=== PATIENT | female | born 1955 | race Caucasian/White ===

== ENCOUNTER 2021-05-23 08:23 | Outpatient (CLI) | payer OTHER, SELFPAY ==
--- NOTE | 2021-06-11 12:16 | WPDHOMESLEEP ---
Sleep Study - Home Unattended Date of Study: 05/23/21 <Ermelinda Ontiveros DO - Last Filed: 06/11/21 12:47> Ordering Provider: Lisa Awan MD <Ermelinda Ontiveros DO - Last Filed: 06/11/21 12:47> Interpreting Provider: Ermelinda Ontiveros DO <Ermelinda Ontiveros - Last Filed: 06/11/21 12:47> Home Sleep Study Type: Watch PAT <Ermelinda Ontiveros - Last Filed: 06/11/21 12:47> Height: 1.65 m <Ermelinda Ontiveros - Last Filed: 06/11/21 12:47> Weight: 126.099 kg <Ermelinda Ontiveros DO - Last Filed: 06/11/21 12:47> Body Mass Index: 46.2 <Ermelinda Ontiveros - Last Filed: 06/11/21 12:47> Neck Circumference (inches): 18 <Ermelinda Ontiveros - Last Filed: 06/11/21 12:47> [place]: 3 <Ermelinda Ontiveros - Last Filed: 06/11/21 12:47> Reason for Sleep Study Unrefreshing sleep, Nocturia, daytime hypersomnia <Ermelinda Ontiveros - Last Filed: 06/11/21 12:47> Sleep History The patient is a 65-year-old female with hypertension, GERD and recently diagnosed seronegative rheumatoid arthritis with possible lung involvement. The patient is currently retired. She rarely awakens from sleep short of breath. She frequently awakens at night with heartburn, belching or cough. She constantly snores and is frequently loud enough that others complain. She occasionally has trouble sleeping when she has a cold. She denies waking up gasping for air throughout the night. She occasionally has breathing problems at night observed by others. She frequently sweats excessively at night. She frequently has heart palpitations or notices irregular heartbeats during the night. She denies falling asleep during the day and while driving. She denies sleep paralysis and cataplexy. She rarely experiences vivid dreamlike scenes upon awakening or falling asleep. She rarely has nightmares. She frequently has thoughts racing through her mind. She denies feeling sad or depressed. She rarely feels anxious. She rarely notices parts of her body jerk. She denies kicking throughout the night. She occasionally experiences crawling and aching feelings in her legs as well as leg pain during the night. She denies grinding her teeth during sleep and awakening with jaw pain in the morning. She is occasionally bothered by pain during the day and awakened by pain during the night. She occasionally wakes up feeling stiff in the morning with sore and achy muscles. The patient goes to bed between 11 and midnight on both weekdays and weekends. It takes her about 10 minutes to fall asleep. She will wake up 3-4 times per night. When she awakens , she will use the restroom. Occasionally it will take her 45 minutes to get back to sleep. She wakes up around 5:00 a.m. on both weekdays and weekends. She typically gets 8-9 hours of sleep per night. She will stay in bed and watch television for 30-60 minutes after awakening. She currently lives with her . She does not consume any caffeinated beverages within 2 hours of bedtime. She does not engage in physical exercise before bedtime. She will watch television before falling asleep. She does not take naps in the afternoon or the evening. The patient quit smoking 45 years ago. The patient drinks 1 caffeinated beverage per day. She drinks 4 alcoholic beverages per day. She denies recreational drug use. <Ermelinda Ontiveros DO - Last Filed: 06/11/21 12:47> [facility] Past Medical History Medical History: Medical History Arthritis Gastroesophageal reflux disease History of endometrial cancer Stage I, hysterectimy Hyperlipidemia Hypertension <Ermelinda Ontiveros DO - Last Filed: 06/11/21 12:47> Surgical History Surgical History: Surgical History H/O foot surgery History of hysterectomy for endometrial can
[2021-06-11 12:26] VITALS: BMI 46.2
== END 2021-05-24 14:00 | disposition home or self-care (01) ==
LOC: ANHCSM 05-27 08:23
PROVIDERS: PCP Internal Medicine; Visit Provider Internal Medicine Critical Care Medicine
DX: Z72.820 Sleep deprivation (principal); G47.33 Obstructive sleep apnea (adult) (pediatric); G47.31 Primary central sleep apnea
CPT/HCPCS: 95800

== ENCOUNTER 2021-07-05 13:59 | Emergency (ER) | payer OTHER, SELFPAY ==
[2021-07-05 14:55] VITALS: BP 187/94; PULSE 107; RESP 16; TEMP 36.1; O2SAT 97
--- NOTE | 2021-07-05 19:19 | PC.NURSE ---
Pt. up to cash surrender calculator stating she will follow up w/ pcp. pt. advised to seek medical tx if there is any change in pt. condition or concerns. pt. VSS 97% o2, hr 101, bp 167/94
== END 2021-07-06 05:24 | disposition left against medical advice (07) ==
PROVIDERS: PCP Internal Medicine
DX: R11.2 Nausea with vomiting, unspecified (principal)
CPT/HCPCS: 99199

== ENCOUNTER 2021-07-24 07:42 | Outpatient (CLI) | payer OTHER, SELFPAY ==
--- NOTE | 2021-08-05 19:49 | WPDSLEEPSTUD ---
Sleep Study Date of Study: 07/24/21 <Ermelinda Ontiveros DO - Last Filed: 08/06/21 14:06> Ordering Provider: Lisa Awan MD <Ermelinda Ontiveros - Last Filed: 08/06/21 14:06> Interpreting Physician: Ermelinda Ontiveros DO <Ermelinda Ontiveros - Last Filed: 08/06/21 14:06> Sleep Study Type: CPAP Titration <Ermelinda Ontiveros DO - Last Filed: 08/06/21 14:06> Height: 1.75 m <Ermelinda Ontiveros DO - Last Filed: 08/06/21 14:06> Weight: 127.006 kg <Ermelinda Onitveros DO - Last Filed: 08/06/21 14:06> Body Mass Index: 41.3 <Ermelinda Ontiveros DO - Last Filed: 08/06/21 14:06> Neck Circumference (inches): 15.5 <Ermelinda Ontiveros DO - Last Filed: 08/06/21 14:06> [place]: 3 <Ermelinda Ontiveros DO - Last Filed: 08/06/21 14:06> Reason for Sleep Study The patient had an HSAT on 05/23/2021 that showed an AHI of 53.1 and a central apnea index of 8.3. <Ermelinda Ontiveros DO - Last Filed: 08/06/21 14:06> Sleep History The patient is a 65-year-old female with hypertension, GERD and recently diagnosed seronegative rheumatoid arthritis with possible lung involvement. The patient is currently retired. She rarely awakens from sleep short of breath. She frequently awakens at night with heartburn, belching or cough. She constantly snores and is frequently loud enough that others complain. She occasionally has trouble sleeping when she has a cold. She denies waking up gasping for air throughout the night. She occasionally has breathing problems at night observed by others. She frequently sweats excessively at night. She frequently has heart palpitations or notices irregular heartbeats during the night. She denies falling asleep during the day and while driving. She denies sleep paralysis and cataplexy. She rarely experiences vivid dreamlike scenes upon awakening or falling asleep. She rarely has nightmares. She frequently has thoughts racing through her mind. She denies feeling sad or depressed. She rarely feels anxious. She rarely notices parts of her body jerk. She denies kicking throughout the night. She occasionally experiences crawling and aching feelings in her legs as well as leg pain during the night. She denies grinding her teeth during sleep and awakening with jaw pain in the morning. She is occasionally bothered by pain during the day and awakened by pain during the night. She occasionally wakes up feeling stiff in the morning with sore and achy muscles. The patient goes to bed between 11 and midnight on both weekdays and weekends. It takes her about 10 minutes to fall asleep. She will wake up 3-4 times per night. When she awakens , she will use the restroom. Occasionally it will take her 45 minutes to get back to sleep. She wakes up around 5:00 a.m. on both weekdays and weekends. She typically gets 8-9 hours of sleep per night. She will stay in bed and watch television for 30-60 minutes after awakening. She currently lives with her . She does not consume any caffeinated beverages within 2 hours of bedtime. She does not engage in physical exercise before bedtime. She will watch television before falling asleep. She does not take naps in the afternoon or the evening. The patient quit smoking 45 years ago. The patient drinks 1 caffeinated beverage per day. She drinks 4 alcoholic beverages per day. She denies recreational drug use. <Ermelinda Ontiveros DO - Last Filed: 08/06/21 14:06> [facility] Past Medical History Medical History: Medical History Arthritis Gastroesophageal reflux disease History of endometrial cancer Stage I, hysterectimy Hyperlipidemia Hypertension <Ermelinda Ontiveros DO - Last Filed: 08/06/21 14:06> Surgical History Surgical History: Surgical History H/O foot surgery History of hys
[2021-08-06 13:57] VITALS: BMI 41.3
== END 2021-07-25 06:55 | disposition home or self-care (01) ==
LOC: ANHCSM 07:44
PROVIDERS: PCP Internal Medicine; Visit Provider Internal Medicine Critical Care Medicine
DX: G47.33 Obstructive sleep apnea (adult) (pediatric) (principal); G47.31 Primary central sleep apnea
CPT/HCPCS: 95811

== ENCOUNTER 2021-07-25 14:30 | Outpatient (CLI) | payer OTHER, SELFPAY ==
--- NOTE | 2021-07-25 14:51 | ECHO_ITS ---
Patient Info Name: Sal Goins Age: 65 years : 1955 Gender: Female Ht: 96 in Wt: 280 lbs BSA: 2.90 m2 HR: 96 bpm BP: 168 / 95 mmHg Technical Quality: Fair Exam Date: 07/25/2021 3:26 PM Exam Location: [facility] Pulmonary Patient Status: Outpatient Admit Date: 07/25/2021 Staff Ordering Physician: Wagnre Curiel APRN [employer] Medic: Blanca Perez RDCS Attending Provider: Wagner Curiel APRN Referring Physician: Moisés OTT; Exam Type: CA echo dop color flow w con Study Info Indications - primary central sleep apnea Complete two-dimensional, color flow and Doppler transthoracic echocardiogram is performed with contrast to opacify the left ventricle and to improve the deliniation of the left ventricle endocardial borders. Contrast/Agitated Saline Contrast/Ag. Saline: Definity Amount: 1.00 ml New IV Access: Inner Forearm and Left Site Condition: IV removed Summary 1. Left ventricular chamber dimension is normal. 2. Definity contrast administered improved wall motion interpretation. 3. Left ventricular systolic function is normal, estimated at 65-70%. 4. The left ventricular diastolic function is grade I diastolic dysfunction. 5. There is trace tricuspid valve regurgitation. 6. Mild pulmonary hypertension, estimated pulmonary arterial systolic pressure is 40 mmHg. Left Ventricle Definity contrast administered improved wall motion interpretation. Tissue doppler is not performed. Left ventricular chamber dimension is normal. Left ventricular systolic function is normal, estimated at 65-70%. The left ventricular diastolic function is grade I diastolic dysfunction. Right Ventricle Right ventricular chamber dimension is normal. Right ventricular systolic function is normal. Left Atria Left atrial chamber dimension is normal. Right Atria Right atrial chamber dimension is normal. Aortic Valve The aortic valve is trileaflet. There is no aortic valve stenosis. There is no aortic valve regurgitation. Pulmonic Valve There is no pulmonic regurgitation. Mitral Valve There is no mitral valve stenosis. There is no mitral valve regurgitation. Tricuspid Valve There is trace tricuspid valve regurgitation. Mild pulmonary hypertension, estimated pulmonary arterial systolic pressure is 40 mmHg. Pericardium/Pleural There is no pericardial effusion. Inferior Vena Cava Normal inferior vena cava with >50% collapse upon inspiration consistent with normal right atrial pressure, 5 mmHg. Aorta The aortic root size at the sinus of Valsalva is normal. Left Ventricular Outflow Tract Name Value Normal LVOT 2D LVOT Diameter 2.03 cm LVOT Doppler LVOT Peak Gradient 6 mmHg LVOT Mean Gradient 4 mmHg LVOT VTI 23.35 cm LVOT VTI/AV VTI Ratio 0.73 LVOT Stroke Volume 75.65 ml LVOT CO 18.64 l/min LVOT CI 6.42 L/min/m2 Pulmonic Valve
[2021-07-25] MEDS: PERFLUTREN LIPID MICROSPHERES 1.5 ML VIAL DILUTED TO 10 ML TOTAL VOLUME IV PUSH (15:48)
== END 2021-07-25 14:31 | disposition home or self-care (01) ==
PROVIDERS: PCP Internal Medicine; Visit Provider Nurse Practitioner Family
DX: G47.31 Primary central sleep apnea (principal); I27.20 Pulmonary hypertension, unspecified
CPT/HCPCS: C8929

== ENCOUNTER 2022-05-05 14:59 | Outpatient (CLI) | payer MEDICARE, SELFPAY ==
--- NOTE | ~2022-05-05 | XR_ITS ---
EXAMINATION: XR knee LT min 4V DATE: 05/05/2022 15:52 INDICATION: Chronic left knee pain. Arthritis. TECHNIQUE: 4 views of left knee were obtained. COMPARISON: None. FINDINGS: There is varus attenuation at the knee. No fracture. There is severe osteoarthritis of medi al compartment and mild osteoarthritis of lateral and patellofemoral compartments. No knee joint effu luda. IMPRESSION: 1. Severe left knee osteoarthritis. Reviewed, dictated and finalized at location B.
--- NOTE | ~2022-05-05 | XR_ITS ---
EXAMINATION: XR knee RT min 4V DATE: 05/05/2022 15:53 INDICATION: Right knee pain. TECHNIQUE: 4 views of right knee were obtained. COMPARISON: None. FINDINGS: Bone alignment is normal. No fracture. There is moderate osteoarthritis of medial compartme nt and mild osteoarthritis of lateral and patellofemoral compartments. No knee joint effusion. IMPRESSION: 1. Moderate right knee osteoarthritis. Reviewed, dictated and finalized at location B.
== END 2022-05-05 15:00 | disposition home or self-care (01) ==
PROVIDERS: PCP Internal Medicine; Visit Provider Internal Medicine
DX: M25.561 Pain in right knee (principal); M25.562 Pain in left knee; G89.29 Other chronic pain; M17.0 Bilateral primary osteoarthritis of knee
CPT/HCPCS: 73564

== ENCOUNTER 2022-09-23 13:36 | Outpatient (CLI) | payer MEDICARE, SELFPAY ==
--- NOTE | ~2022-09-23 | CT_ITS ---
EXAMINATION:CT chest high resolution wo ks DATE: 09/23/2022 13:56 INDICATION: Interstitial lung disease. TECHNIQUE: Computed tomography (CT) of the chest was performed without intravenous contrast. Automate d exposure control and iterative reconstruction technique were employed. The dose-length product (DLP ) was 969.92 mGy-cm. COMPARISON: Chest 2 views 03/10/2019 FINDINGS: There is mild atelectasis bilaterally. There are subpleural bands in the lower lobes. No br onchiectasis or honeycombing. A calcified right lung nodule and calcified right hilar and mediastinal lymph nodes are consistent with old granulomatous disease. The heart size is normal. There are coron nelson artery calcifications. No pericardial effusion. There are radiopaque foreign bodies in the stomac h that may be endoscopy clips. There is mild thoracic spondylosis. IMPRESSION: 1. Mild lung disease involving the lower lobes that may be chronic. Reviewed, dictated and finalized at location A. ER METAL
== END 2022-09-23 13:37 | disposition home or self-care (01) ==
PROVIDERS: PCP Internal Medicine
DX: J84.9 Interstitial pulmonary disease, unspecified (principal); D84.9 Immunodeficiency, unspecified; M06.09 Rheumatoid arthritis without rheumatoid factor, multiple sites
CPT/HCPCS: 71250

== ENCOUNTER → 2022-10-02 08:10 | Outpatient (CLI) | payer MEDICARE, SELFPAY ==
--- NOTE | 2022-10-27 10:26 | WPDSLEEPSTUD ---
Sleep Study Date of Study: 10/02/22 Ordering Provider: Lisa Awan MD Interpreting Physician: Ermelinda Ontiveros DO Sleep Study Type: BiPAP Titration Height: 1.63 m Weight: 128.367 kg Body Mass Index: 48.5 Neck Circumference (inches): 18 [place]: 3 Reason for Sleep Study HSAT on 05/23/2021 showed AHI of 53.1 and ROSALINE of 8.3. She had a PAP Titration done on 07/24/2021 where CPAP 19 cm H2O with an EPR of 2 was her optimal pressure. Sleep History The patient is a 67-year-old female with hypertension, GERD and recently diagnosed seronegative rheumatoid arthritis with possible lung involvement.? The patient is currently retired.? She rarely awakens from sleep short of breath.? She frequently awakens at night with heartburn, belching or cough.? She constantly snores and is frequently loud enough that others complain.? She occasionally has trouble sleeping when she has a cold.? She denies waking up gasping for air throughout the night.? She occasionally has breathing problems at night observed by others.? She frequently sweats excessively at night.? She frequently has heart palpitations or notices irregular heartbeats during the night.? She denies falling asleep during the day and while driving.? She denies sleep paralysis and cataplexy.? She rarely experiences vivid dreamlike scenes upon awakening or falling asleep.? She rarely has nightmares.? She frequently has thoughts racing through her mind.? She denies feeling sad or depressed.? She rarely feels anxious.? She rarely notices parts of her body jerk.? She denies kicking throughout the night.??She occasionally experiences crawling and aching feelings in her legs as well as leg pain during the night.? She denies grinding her teeth during sleep and awakening with jaw pain in the morning.? She is occasionally bothered by pain during the day and awakened by pain during the night.? She occasionally wakes up feeling stiff in the morning with sore and achy muscles. The patient goes to bed between 11 and midnight on both weekdays and weekends.? It takes her about 10 minutes to fall asleep.? She will wake up 3-4 times per night.? When she awakens , she will use the restroom.? Occasionally it will take her 45 minutes to get back to sleep.? She wakes up around 5:00 a.m. on both weekdays and weekends.? She typically gets 8-9 hours of sleep per night.? She will stay in bed and watch television for 30-60 minutes after awakening.? She currently lives with her .? She does not consume any caffeinated beverages within 2 hours of bedtime.? She does not engage in physical exercise before bedtime.? She will watch television before falling asleep.? She does not take naps in the afternoon or the evening.? The patient quit smoking 45 years ago.? The patient drinks 1 caffeinated beverage per day.? She drinks 4 alcoholic beverages per day. She denies recreational drug use. [facility] Past Medical History Medical History Arthritis Gastroesophageal reflux disease History of endometrial cancer Stage I, hysterectimy Hyperlipidemia Hypertension Surgical History Surgical History H/O foot surgery History of hysterectomy for endometrial cancer Family History Family History Mother Heart disease Grandparent Hypertension Grandparent Brain tumor Social History Social History Smoking packs per day: 1 Smoking cigarettes per day: 20.0 Years smoked: 10 Smoking pack-years: 10.00 Smoking status: Former smoker (1981) Smoking end date: 07/20/81 Medications Home Medications Medication Instructions Recorded Confirmed Type albuterol sulfate 90 mcg/actuation 2 puff inhalation Q4H PRN 04/04/21 06/11/22 History aerosol inhaler amlodipine 10 mg tablet 10 mg PO DAILY 04/04/21
[2022-10-27 10:29] VITALS: BMI 48.5
== END ==
PROVIDERS: PCP Internal Medicine; Visit Provider Internal Medicine Critical Care Medicine
DX: G47.33 Obstructive sleep apnea (adult) (pediatric) (principal); G47.31 Primary central sleep apnea; R25.8 Other abnormal involuntary movements; Z78.9 Other specified health status; K21.9 Gastro-esophageal reflux disease without esophagitis; I10 Essential (primary) hypertension; E78.5 Hyperlipidemia, unspecified; Z85.42 Personal history of malignant neoplasm of other parts of uterus; Z87.891 Personal history of nicotine dependence
CPT/HCPCS: 95811

== ENCOUNTER 2022-10-24 12:42 | Outpatient (CLI) | payer MEDICARE, SELFPAY ==
--- NOTE | ~2022-10-24 | DEXA_ITS ---
Bone Density Report Name: NADINE PASCAL Age: 67 Sex: Female Ethnicity: White Date of : 1955 Indication: postmenopausal; screening for osteoporosis; height loss; cancer; hysterectomy; rheumatoid arthritis; Referring Provider: FRED, VENUS Rios Study: Bone densitometry was performed. Exam Date: October 24, 2022 Accession number: [id number] Bone Density: Region BMD T-score Z-score Classification AP Spine(L1-L4) 1.302 2.3 4.2 Normal Femoral Neck (Left) 0.842 -0.1 1.5 Normal Total Hip (Left) 1.250 2.5 3.8 Normal Femoral Neck (Right) 0.805 -0.4 1.2 Normal Total Hip (Right) 1.173 1.9 3.2 Normal Total Hip Mean 1.212 2.2 3.5 Normal World Health Organization criteria for BMD impression classify patients as: Normal (T-score at or above -1.0), Osteopenia (T-score between -1.0 and -2.5), or Osteoporosis (T-score at or below -2.5). 10-year Fracture Risk: FRAX not reported because: All T-scores for Spine Total, Hip Total, Femoral Neck at or above -1.0 Clinical Information Provided by Patient: Has rheumatoid arthritis Has 3 or more alcoholic drinks per day Has the following medical conditions: Cancer, Hysterectomy Patient maximum height was 65 Menopause Age: 57 No regular weight bearing exercise Onset of menses at age 16 Number of children 2 Impression: The patient has normal bone mass. The patient has risk factors, including: excessive alcohol use. Discussion: BONE DENSITY IS ABOVE THE MINIMUM DESIRABLE LEVEL AT ALL SKELETAL SITES TESTED. This patient?s bone mineral density is above the minimum desirable level (T-score -1.0 or better) at all sites measured. The patient should follow a healthful lifestyle (good nutrition with adequate calcium and vitamin D, and appropriate weight-bearing exercise). Follow-Up: Consider repeating this study in 5 years or sooner if there is some new clinical indication. Reported by: FELIBERTO on 10/24/2022 1:10:00 PM. Reviewed, dictated and finalized at location [facility]
== END 2022-10-24 12:43 | disposition home or self-care (01) ==
LOC: ANHIMG 12:47
PROVIDERS: PCP Internal Medicine; Visit Provider Internal Medicine
DX: Z78.0 Asymptomatic menopausal state (principal)
CPT/HCPCS: 77080

== ENCOUNTER 2023-07-21 12:36 | Emergency (ER) | payer MEDICARE, SELFPAY ==
--- NOTE | 2023-07-21 12:38 | ED.UPPEXIN ---
HPI - Extremity Injury (Upper) General Chief Complaint: Extremity Injury, Upper Stated Complaint: Right Arm Pain/Bruise Time Seen by Provider: 07/21/23 12:37 Source: patient Mode of arrival: ambulatory Limitations: no limitations History of Present Illness HPI narrative: Patient is a 67-year-old female who presents with right shoulder pain after adjusting herself in a chair in feeling a sharp pain 1 week ago. Patient states it has not hurt as bad as the 1st day since. Patient still states she is able to use the arm normally but does have certain movements that elicit pain. Patient also reports the front of shoulder is tender on palpation. Patient also has bruise to right bicep. Patient has history of left bicep tear. Patient denies falling on arm or being on blood thinners. Related Data Home Medications Medication Instructions Recorded Confirmed albuterol sulfate 90 mcg/actuation 2 puff inhalation Q4H PRN Wheezing 04/04/21 07/21/23 aerosol inhaler amlodipine 10 mg tablet 10 mg PO DAILY 04/04/21 07/21/23 atorvastatin 10 mg tablet 10 mg PO DAILY 04/04/21 07/21/23 losartan 100 mg tablet 100 mg PO DAILY 04/04/21 07/21/23 omeprazole 20 mg capsule,delayed 20 mg PO DAILY 04/04/21 07/21/23 release mycophenolate mofetil 250 mg 500 mg PO Q12H 06/11/22 07/21/23 capsule (CellCept) diclofenac sodium 75 mg 75 mg PO BID 02/19/23 07/21/23 tablet,delayed release gabapentin 100 mg capsule 100 mg PO QID 02/19/23 07/21/23 hydroxychloroquine 100 mg tablet 200 mg PO BID 02/19/23 07/21/23 tirzepatide 7.5 mg/0.5 mL 7.5 mg subcut WEEKLY 07/21/23 07/21/23 subcutaneous pen injector (Sergio) Allergies Allergy/AdvReac Type Severity Reaction Status Date / Time azilsartan AdvReac Vomiting Verified 07/21/23 12:59 chlorthalidone AdvReac Vomiting Verified 07/21/23 12:56 Review of Systems Review of Systems: All systems reviewed & are unremarkable except as noted in HPI and below Constitutional: Constitutional: Denies body ache(s), Denies chills, Denies fatigue, Denies fever(s), Denies headache(s), Denies malaise and Denies weakness Eyes: Eyes: Denies blurry vision, Denies irritation and Denies loss of vision ENT: Denies otalgia, Denies headache(s), Denies nasal discharge, Denies sinus pain and Denies sore throat Cardiovascular: Cardiovascular: Denies chest pain, Denies irregular heart rhythm and Denies dyspnea Respiratory: Respiratory: Denies dyspnea Gastrointestinal: Gastrointestinal: Denies abdominal pain, Denies melena, Denies hematochezia, Denies diarrhea, Denies nausea and Denies vomiting Musculoskeletal: Musculoskeletal: Denies back pain, Denies myalgias and Reports arthralgias Integumentary/Breasts: Skin/Breast: Denies pruritus and Denies rash Neurologic: Denies headache(s), Denies loss of vision and Denies weakness Psychiatric: Psychiatric: Reports no additional psychiatric complaints Endocrine: Endocrine: Denies fatigue PMFSH Past Medical History Medical History Arthritis Gastroesophageal reflux disease History of endometrial cancer Stage I, hysterectimy Hyperlipidemia Hypertension Surgical History Surgical History H/O foot surgery History of hysterectomy for endometrial cancer Family History Family History Mother Heart disease Grandparent Hypertension Grandparent Brain tumor Social History Social History Smoking packs per day: 1 Smoking cigarettes per day: 20.0 Years smoked: 10 Smoking pack-years: 10.00 Smoking status: Former smoker (1981) Smoking end date: 07/20/81 Comments At time of signature, agree with nursing past medical, surgical, social and family history. There is no relevant family history pertinent to the presenting complaint. Exam Const:
[2023-07-21 12:52] VITALS: BP 154/69; PULSE 93; RESP 16; TEMP 36.9; O2SAT 98
== END 2023-07-21 13:35 | disposition home or self-care (01) ==
PROVIDERS: Emergency Provider Nurse Practitioner Family; PCP Internal Medicine
DX: S46.911A Strain of unspecified muscle, fascia and tendon at shoulder and upper arm level, right arm, initial encounter (principal); T14.90XA Injury, unspecified, initial encounter; E78.5 Hyperlipidemia, unspecified; I10 Essential (primary) hypertension; Z85.42 Personal history of malignant neoplasm of other parts of uterus; Z87.891 Personal history of nicotine dependence
CPT/HCPCS: 99213; G0463

== ENCOUNTER 2023-10-22 12:33 | Outpatient (CLI) | payer MEDICARE, SELFPAY ==
--- NOTE | ~2023-10-22 | US_ITS ---
EXAMINATION: US venous doppler [facility] DATE: 10/22/2023 13:05 INDICATION: Left lower limb focal swelling. TECHNIQUE: Grayscale ultrasound images without and with compression and Doppler ultrasound images of the left lower extremity veins were obtained. COMPARISON: None. FINDINGS: The visualized portions of left common femoral vein, profunda (deep) femoral vein, femoral vein, popl iteal vein, peroneal veins, posterior tibial veins, and greater saphenous vein outflow are patent. Th ere is a 4.3 x 1.5 cm mass of mixed echogenicity in the medial popliteal region. IMPRESSION: 1. No deep venous thrombosis. 2. 4.3 x 1.5 cm mass of mixed echogenicity in the medial popliteal region, likely a hematoma and/or B camila's cyst. Reviewed, dictated and finalized at location A. IMPRESSION: 1. No deep venous thrombosis. 2. 4.3 x 1.5 cm mass of mixed echogenicity in the medial popliteal region, like ly a hematoma and/or Christensen's cyst.
== END 2023-10-22 12:34 | disposition home or self-care (01) ==
PROVIDERS: PCP Internal Medicine; Visit Provider Orthopaedic Surgery
DX: M79.605 Pain in left leg (principal); Z47.1 Aftercare following joint replacement surgery; Z96.652 Presence of left artificial knee joint
CPT/HCPCS: 93971

== ENCOUNTER 2024-06-24 12:53 | Emergency (ER) | payer MEDICARE, SELFPAY ==
--- NOTE | ~2024-06-24 | XR_ITS ---
Clinical Indication: Cough PA and lateral views of the chest: Comparison: 03/10/2019 Findings: The lungs are clear, without evidence of focal consolidation or pleural effusion. Cardiome diastinal silhouette is within normal limits. Bones and soft tissues are unremarkable. Impression: Normal chest. Reviewed, dictated and finalized at [facility]. NAGE DESIGN COORDINATOR Impression: Normal chest.
[2024-06-24 13:04] VITALS: BP 183/80; PULSE 107; RESP 19; TEMP 37.1; O2SAT 96
[2024-06-24 13:30] VITALS: BP 207/72; PULSE 107; RESP 19; O2SAT 96
--- NOTE | 2024-06-24 13:32 | ED_ITS ---
HPI - URI/Sore Throat General Chief Complaint: Upper Respiratory Infection Stated Complaint: SOB/Cough Time Seen by Provider: 06/24/24 13:46 Source: patient, RN notes reviewed and old records reviewed Mode of arrival: ambulatory Limitations: no limitations History of Present Illness HPI Narrative: Patient presents with complaints of cough and wheezing for the past week. She denies any fever. She does report that she has been taking Sudafed for her symptoms and using her albuterol inhaler. She denies any shortness of breath. She is not in any distress at this time, including respiratory distress. Related Data Home Medications Medication Instructions Recorded Confirmed albuterol sulfate 90 mcg/actuation 2 puff inhalation Q4H PRN Wheezing 04/04/21 06/24/24 aerosol inhaler amlodipine 10 mg tablet 10 mg PO DAILY 04/04/21 06/24/24 atorvastatin 10 mg tablet 10 mg PO DAILY 04/04/21 06/24/24 losartan 100 mg tablet 100 mg PO DAILY 04/04/21 06/24/24 omeprazole 20 mg capsule,delayed 20 mg PO DAILY 04/04/21 06/24/24 release mycophenolate mofetil 250 mg 500 mg PO Q12H 06/11/22 06/24/24 capsule (CellCept) diclofenac sodium 75 mg 75 mg PO BID 02/19/23 06/24/24 tablet,delayed release gabapentin 100 mg capsule 100 mg PO QID 02/19/23 06/24/24 hydroxychloroquine 100 mg tablet 200 mg PO BID 02/19/23 06/24/24 tirzepatide 7.5 mg/0.5 mL 7.5 mg subcut WEEKLY 07/21/23 06/24/24 subcutaneous pen injector (Mounjaro) Allergies Allergy/AdvReac Type Severity Reaction Status Date / Time azilsartan AdvReac Vomiting Verified 06/24/24 13:02 chlorthalidone AdvReac Vomiting Verified 06/24/24 13:02 Review of Systems Review of Systems: All systems reviewed & are unremarkable except as noted in HPI and below Constitutional: Constitutional: Reports no additional constitutional complaints ENT: Reports system reviewed and no additional complaints, except as documented Cardiovascular: Cardiovascular: Reports no additional cardiovascular complaints Respiratory: Respiratory: Reports no additional respiratory complaints, Reports cough and Reports wheezing Gastrointestinal: Gastrointestinal: Reports no additional gastrointestinal complaints PMFSH Past Medical History Medical History Arthritis Gastroesophageal reflux disease History of endometrial cancer Stage I, hysterectimy Hyperlipidemia Hypertension Surgical History Surgical History H/O foot surgery History of hysterectomy for endometrial cancer Family History Family History Mother Heart disease Grandparent Hypertension Grandparent Brain tumor Social History Social History Smoking packs per day: 1 Smoking cigarettes per day: 20.0 Years smoked: 10 Smoking pack-years: 10.00 Smoking status: Former smoker (1981) Smoking end date: 07/20/81 Comments At the time of my signature, I reviewed and agree with the nursing past medical, surgical, social, and family history. There is no relevant family history pertinent to the patient complaint. Exam Const: General: cooperative, no acute distress, alert and awake Orientation/consciousness: oriented to person, oriented to place and oriented to time HENMT: Head: normal to inspection Ears: TM's normal bilaterally Mouth: Yes moist mucous membranes Resp: Effort & Inspection: normal respiratory effort and able to speak in complete sentences Auscultation: clear to auscultation bilaterally, no crackles, no rales, no rhonchi and wheezes expiratory wheezes Cardio: Palpation: normal PMI Rate: regular rate Rhythm: regular rhythm Heart sounds: S1 normal heart sound present and S2 normal heart sound present Neuro: General: oriented to person, oriented to place and oriented to time Cranial nerves: Yes CN's II-XII intact bilaterally Psych: Appearance: grossly normal Thought process: Normal thought process p resent Insight: Good insight present (Psych) Judgement: Good judgement present (Psych) Course Course Level of Care: Express Care Visit Vital Signs Vital signs: Vital Signs Temperature 98.7 F 06/24/24 13:04 Pulse Rate 107 H 06/24/24 13:04 Respiratory Rate 19 06/24/24 13:04 Blood Pressure 183/80 H 06/24/24 13:04 Pulse Oximetry 96 06/24/24 13:04 Oxygen Delivery Room Air 12/06/24 13:04 Temperature 98.7 F 06/24/24 13:04 Pulse Rate 107 H 06/24/24 13:04 Respiratory Rate 19 06/24/24 13:04 Blood Pressure 183/80 H 06/24/24 13:04 Pulse Oximetry 96 06/24/24 13:04 Oxygen Delivery Room Air 06/24/24 13:04 Reviewed MDM - URI/Sore Throat MDM Narrative Medical decision making narrative: Elevated blood pressure noted. Patient has been taking Sudafed, she was counseled to cease this. Negative chest x-ray. Patient with multiple comorbid conditions. Start azithromycin for Ativan to inflammatory properties, start prednisone. Continue albuterol. Emergency department for any new or worse symp toms. Discharge instructions reviewed with patient, as well as provided in writing per nursing staff. The instructions also include specific and strict return/GO TO THE ER as well as f/u information. All questions have been answered, and the patient deny any further questions with discharge and discharge plan. Some parts of this dictation were generated by voice recognition software and may contain typographical and/or grammatical inaccuracies. Differential Diagnosis Differential diagnosis: Likely upper respiratory infection, otitis media, bronchitis and influenza Medical Records Attestation: I reviewed the patient's medical records. Imaging Data Attestation: I personally reviewed and interpreted this imaging study as follows: My impression: negative Radiologist's impression: No acute process Discharge Plan Discharge Clinical Impression: Bronchitis, Elevated blood pressure reading Patient Disposition: Home, Self-Care Condition: Stable Instructions: Antibiotic Form, Acute Bronchitis (ED) Additional Instructions: Take medications as prescribed. Follow with primary care provider. Emergency department for new or worse symptoms Prescriptions: New azithromycin 250 mg tablet See Rx Instructions .ROUTE .COMPLEX Qty: 6 0RF Rx Instructions: For 250 mg dose pack: take 500 mg today (day 1), then 250 mg for 4 days (days 2-5) prednisone 50 mg tablet 50 mg PO DAILY Qty: 5 0RF No Action Mounjaro 7.5 mg/0.5 mL pen injector 7.5 mg SUBCUT WEEKLY lidocaine 5 % adhesive patch,medicated 1 patch topical DAILY Qty: 15 0RF Rx Instructions: leave on most painful area for up to 12 hrs albuterol sulfate 90 mcg/actuation HFA aerosol inhaler 2 puff inhalation Q4H PRN (Reason: Wheezing) atorvastatin 10 mg tablet 10 mg PO DAILY amlodipine 10 mg tablet 10 mg PO DAILY losartan 100 mg tablet 100 mg PO DAILY omeprazole 20 mg capsule,delayed release(DR/EC) 20 mg PO DAILY mycophenolate mofetil [CellCept] 250 mg capsule 500 mg PO Q12H diclofenac sodium 75 mg tablet,delayed release (DR/EC) 75 mg PO BID gabapentin 100 mg capsule 100 mg PO QID hydroxychloroquine 100 mg tablet 200 mg PO BID ferrous sulfate 325 mg (65 mg iron) tablet 325 mg PO DAILY 30 Days Qty: 30 3RF Follow-up/Referrals: Torsten,Azam Rios MD [Primary Care Provider] - 1 Week Time of Disposition: 14:26
[2024-06-24 14:30] VITALS: BP 204/78
== END 2024-06-24 14:30 | disposition home or self-care (01) ==
PROVIDERS: Emergency Provider Nurse Practitioner Family; PCP Internal Medicine
DX: J40 Bronchitis, not specified as acute or chronic (principal); I10 Essential (primary) hypertension; E78.5 Hyperlipidemia, unspecified; K21.9 Gastro-esophageal reflux disease without esophagitis; M19.90 Unspecified osteoarthritis, unspecified site; Z85.42 Personal history of malignant neoplasm of other parts of uterus; Z87.891 Personal history of nicotine dependence
CPT/HCPCS: 71046; 99213; G0463

== ENCOUNTER 2025-01-10 12:25 | Emergency (ER) | payer MEDICARE, SELFPAY ==
[2025-01-10 12:32] VITALS: BP 164/85; PULSE 107; RESP 16; TEMP 37.2; O2SAT 100
[2025-01-10 13:03] VITALS: BP 159/77; PULSE 102; O2SAT 98
--- NOTE | 2025-01-10 13:03 | ED_ITS ---
HPI - URI/Sore Throat General Chief Complaint: Shortness of Breath/Dyspnea Stated Complaint: Low B/P, High Heart Rate/SOB Time Seen by Provider: 01/10/25 12:25 Source: patient Mode of arrival: ambulatory Limitations: no limitations History of Present Illness HPI Narrative: Patient is a 69-year-old female who presents with concern for heat exhaustion. Patient states she was in the pool on Thursday and did drink water and Gatorade then, but has not been continuing to drink fluids since she ran out. Patient states her blood pressure on Thursday was 74/53, 97/74, 103/61. She took her blood pressure medicine prior to arrival, but is hypertensive today. Did not check her heart rate over the weekend. Patient also reports nasal congestion, runny nose and mild cough for 3-4 days. This a she takes Flonase and Claritin every day. Also reports she had shortness of breath and a slight headache this morning but also resolved. Denies any fever, chills, chest pain, nausea, vomiting, diarrhea, persistent cough, or productive cough. Related Data Home Medications ?Medication ?Instructions ?Recorded ?Confirmed ?Last Taken ?Type albuterol sulfate 90 mcg/actuation 2 puff inhalation Q4H PRN Wheezing 04/04/21 08/25/24 Unknown History aerosol inhaler amlodipine 10 mg tablet 10 mg PO DAILY 04/04/21 08/25/24 Unknown History atorvastatin 10 mg tablet 10 mg PO DAILY 04/04/21 08/25/24 Unknown History losartan 100 mg tablet 100 mg PO DAILY 04/04/21 08/25/24 Unknown History omeprazole 20 mg capsule,delayed 20 mg PO DAILY 04/04/21 08/25/24 Unknown History release hydroxychloroquine 100 mg tablet 200 mg PO BID 02/19/23 08/25/24 Unknown History mycophenolate mofetil 500 mg tablet 3,000 mg PO DAILY 08/25/24 08/25/24 Unknown History tirzepatide 12.5 mg/0.5 mL 12.5 mg subcut WEEKLY 08/25/24 08/25/24 Unknown History subcutaneous pen injector (Sergio) Allergies Allergy/AdvReac Type Severity Reaction Status Date / Time azilsartan AdvReac Vomiting Verified 06/24/24 13:02 chlorthalidone AdvReac Vomiting Verified 06/24/24 13:02 Review of Systems Review of Systems: All systems reviewed & are unremarkable except as noted in HPI and below Constitutional: Constitutional: Denies chills, Denies fatigue, Denies fever(s), Reports headache(s), Denies malaise and Denies weakness Eyes: Eyes: Denies blurry vision, Denies itchy eyes and Denies loss of vision ENT: Denies otalgia, Reports headache(s), Reports nasal congestion, Reports nasal discharge, Denies sinus pain and Denies sore throat Cardiovascular: Cardiovascular: Denies chest pain, Denies irregular heart rhythm and Denies dyspnea Respiratory: Respiratory: Reports cough and Denies dyspnea Gastrointestinal: Gastrointestinal: Denies abdominal pain, Denies diarrhea, Denies nausea and Denies vomiting Musculoskeletal: Musculoskeletal: Denies back pain, Denies myalgias and Denies arthralgias Integumentary/Breasts: Skin/Breast: Denies pruritus and Denies rash Neurologic: Reports headache(s), Denies loss of vision and Denies weakness Psychiatric: Psychiatric: Reports no additional psychiatric complaints Endocrine: Endocrine: Denies fatigue Allergic/Immunologic: Allergic/Immunologic: Denies itchy eyes PMFSH Past Medical History Medical History Arthritis History of endometrial cancer Stage I, hysterectimy Gastroesophageal reflux disease Hyperlipidemia Hypertension Surgical History Surgical History H/O foot surgery History of hysterectomy for endometrial cancer Family History Family History Mother Heart disease Grandparent Hypertension Grandparent Brain tumor Social History Social History Smoking packs per day: 1 Smoking cigarettes per day: 20.0 Years smoked: 10 Smoking pack-years: 10.00 Smoking status: Former smoker (1981) Smoking end date: 07/20/81 Comments At time of signature, agree with nursing past medical, surgical, social and family history. There is no relevant family history pertinent to the presenting complaint. Exam Const: General: cooperative, healthy appearing, comfortable, no acute distress and well nourished Nutritional Appearance: well nourished Orientation/consciousness: patient oriented x3 Limitations: no limitations HENMT: Head: normal to inspection, normocephalic and atraumatic Ears: hearing grossly normal bilaterally, external ears normal, TM's normal bilaterally, EAC's normal and no periauricular adenopathy Face/Nose/Sinus: Normal external nose present, Abnormal mucous membranes and turbinates present erythematous bilateral and diffuse, normal facial exam, sinuses nontender and face symmetric Face and sinus: normal facial exam, sinuses nontender and face symmetric Mouth: Yes Normal oral and palatal mucosa present, Yes lip normal, Yes tongue normal, Yes Normal salivary glands and ducts present, Yes oropharynx normal and Yes moist mucous membranes Teeth and gingiva: dentition normal Throat: posterior oropharynx normal, tonsils normal and uvula midline Eyes: General: appearance normal, both eyes and all related structures Alignment and Position: alignment normal and position normal Periorbital: periorbital findings normal Eyelids: eyelids normal Pupils: Equal, round and reactive pupils present Neck: Neck: normal visual inspection, full ROM, no lymphadenopathy and supple Chest: Chest palpation & inspection: normal inspection of the chest and normal palpation of entire chest wall Resp: Effort & Inspection: normal respiratory effort, able to speak in complete sentences and Actively coughing fake cough Auscultation: clear to auscultation bilaterally, no crackles, no rales, no rhonchi and no wheezes Cardio: Rate: tachycardic Rhythm: regular rhythm Heart sounds: S1 normal heart sound present and S2 normal heart sound present GI: Inspection: normal to inspection Skin: General skin exam: normal color and no rashes or lesions noted Neuro: General: patient oriented x3 and moves all extremities Cranial nerves: Yes Equal, round and reactive pupils present Speech: normal speech Gait exam (Neuro): Normal gait present Extrem: General: normal to inspection, full ROM and no edema Psych: Appearance: grossly normal and well kempt Mental Status: mental status grossly normal Speech and movement: Normal speech and movement present Affect: normal affect Attitude: cooperative Thought process: Normal thought process present Course Course Emergency Course: Discharge instructions reviewed with patient, as well as provided in writing per nursing staff. The instructions also include specific and strict return/GO TO THE ER as well as f/u information. All questions have been answered, and the patient deny any further questions with discharge and discharge plan. Portions of this record may have been created with voice recognition software Level of Care: Express Care Visit Vital Signs Vital signs: Vital Signs Temperature 37.2 C 01/10/25 12:32 Pulse Rate 107 H 01/10/25 12:32 Respiratory Rate 16 01/10/25 12:32 Blood Pressure 164/85 H 01/10/25 12:32 Pulse Oximetry 100 01/10/25 12:32 Oxygen Delivery Room Air 01/10/25 12:32 Temperature 37.2 C 01/10/25 12:32 Pulse Rate 102 H 01/10/25 13:03 Respiratory Rate 16 01/10/25 12:32 Blood Pressure 159/77 H 01/10/25 13:03 Pulse Oximetry 98 01/10/25 13:03 Oxygen Delivery Room Air 01/10/25 13:03 Reviewed MDM - URI/Sore Throat MDM Narrative Medical decision making narrative: Patient requesting [facility] for her cough. Explained disease process in depth with patient and the risks of misuse of antibiotics. Patient was able to walk across room and get up on table with no visualize shortness of breath. Patient is speaking in full sentences and was not coughing until we started talking about her cough. Offered patient cough medicine, patient declined stating she had some at home. Explained patient that dehydration can cause elevated heart rate and low blood pressure especially if she did not continue rehydrating after being in the sun. Recommended an increase in fluid intake. Pt well hydrated appearing, in no respiratory distress, hemodynamically stable. Recommend supportive care. The patient is stable at time of discharge the cl inical impression was discussed and the patient was given the opportunity to ask questions, which were addressed as completely as possible given the information available at present. Anticipatory guidance and return to care precautions were discussed and the importance of primary care follow-up was stressed and encouraged. The patient voiced understanding of the plan, indications to return, and the need for follow-up. Exam findings show no acute concerns or changes Patient is appropriate for outpatient treatment and follow-up. Differential diagnosis considered: Amor virus, strep pharyngitis, allergic rhinitis, upper respiratory tract infection, sinusitis, rhinosinusitis, nasopharyngitis. viral pharyngitis, otitis media, otitis externa, otitis effusion, foreign body, cerumen impaction, viral syndrome, and influenza.? Medical Records Attestation: I reviewed the patient's medical records. Discharge Plan Discharge Clinical Impression: Heat exhaustion Qualifiers: Encounter type: initial encounter Qualified Code(s): T67.5XXA - Heat exhaustion, unspecified, initial encounter Allergic rhinitis Qualifiers: Allergic rhinitis trigger: unspecified Allergic rhinitis seasonality: seasonal Qualified Code(s): J30.2 - Other seasonal allergic rhinitis Patient Disposition: Home Condition: Stable Instructions: Heat Exhaustion (ED), Allergies (ED) Additional Instructions: Heat exhaustion is a serious condition that occurs when your body overheats due to prolonged exposure to high temperatures, often combined with dehydration. It can progress to heat stroke if not treated promptly. Warning Signs of Heat Exhaustion * Heavy sweating * Pale, cool, clammy skin * Weakness or fatigue * Dizziness or fainting * Nausea or vomiting * Muscle cramps * Headache * Rapid but weak pulse Immediate Treatments * Move to a cooler area * Get into an air-conditioned room or at least a shaded spot. * Lie down and elevate legs slightly. * Hydrate * Drink cool water or electrolyte drinks (e.g., Gatorade, Pedialyte). * Avoid caffeine and alcohol. * Cool the body * Remove excess clothing. * Apply cool, damp cloths to skin or use cold packs on the neck, armpits, and groin. * Fan the person or mist with cool water. * A cool (not cold) shower or bath can help. * Rest * Avoid strenuous activity for at least 24?48 hours. * Take it easy even after symptoms improve. Seek medical attention if: * Symptoms worsen or don?t improve within 30?60 minutes. * The person is unable to drink fluids. * Confusion, fainting, or high fever develops. * Signs of heat stroke appear (e.g., hot dry skin, altered mental status, no sweating). Your blood pressure was elevated above 120/80 today at Urgent Care. This puts you above the threshold for follow up visit with a primary care provider. High blood pressure does not usually cause any symptoms, however it may lead to kidney failure, stroke, heart disease just to name a few if untreated . Many people are anxious when seeing a provider or nurse. As a result, you are not diagnosed with hypertension at this time unless your blood pressure is persistently high at two office visits at least one week apart. Some things that can help lower blood pressure are lifestyle modifications, such as light exercise, decreased salt in diet, and weight loss. It is important to follow up with a PCP about this within 1 week. Patient Language: Romansh Prescriptions: No Action Mounjaro 12.5 mg/0.5 mL pen injector 12.5 mg subcut WEEKLY mycophenolate mofetil 500 mg tablet 3,000 mg PO DAILY albuterol sulfate 90 mcg/actuation HFA aerosol inhaler 2 puff inhalation Q4H PRN (Reason: Wheezing) atorvastatin 10 mg tablet 10 mg PO DAILY amlodipine 10 mg tablet 10 mg PO DAILY losartan 100 mg tablet 100 mg PO DAILY omeprazole 20 mg capsule,delayed release(DR/EC) 20 mg PO DAILY hydroxychloroquine 100 mg tablet 200 mg PO BID Follow-up/Referrals: Torsten,Azam Rios MD [Primary Care Provider] - 3 Days Time of Disposition: 13:09
== END 2025-01-10 13:15 | disposition home or self-care (01) ==
PROVIDERS: Emergency Provider Nurse Practitioner Family; PCP Internal Medicine
DX: T67.5XXA Heat exhaustion, unspecified, initial encounter (principal); X30.XXXA Exposure to excessive natural heat, initial encounter; J30.2 Other seasonal allergic rhinitis; M19.90 Unspecified osteoarthritis, unspecified site; I10 Essential (primary) hypertension; E78.5 Hyperlipidemia, unspecified; K21.9 Gastro-esophageal reflux disease without esophagitis; Z85.42 Personal history of malignant neoplasm of other parts of uterus; Z87.891 Personal history of nicotine dependence
CPT/HCPCS: 99211; G0463